=== PATIENT | male | born 1975 | race Caucasian/White ===

== ENCOUNTER 2017-07-28 10:45 | Observation (INO) | payer OTHER ==
--- NOTE | 2017-07-28 11:16 | ER Document Report ---
ED Medical Screen (RME) - General Chief Complaint: Chest Pain Stated Complaint: CHEST PAIN Time Seen by Provider: 07/28/17 11:05 Mode of Arrival: Ambulatory Information source: Patient - HPI Patient complains to provider of: CHEST PAIN Onset: Other - 1 MONTH Onset/Duration: Constant, Persistent Context: NEW ONSET THIS A.M. OF PAIN RADIATING TO L. NECK AND FACE. Quality of pain: Pressure Severity: Moderate Associated Symptoms: Nausea. denies: Shortness of breath Exacerbated by: Denies Relieved by: Other - LLD POSITION Similar symptoms previously: No Recently seen / treated by doctor: Yes - 3d AGO, CARDIOLEOGY W/U @ [facility], [place]. - Related Data Allergies/Adverse Reactions: No Known Allergies Allergy (Verified 07/28/17 11:12) Past Medical History - General Information source: Patient - Social History Cigarette use (# per day): Yes Frequency of alcohol use: Occasional Drug Abuse: None Lives with: Family - Past Medical History Cardiac Medical History: Reports: Hx Hypercholesterolemia, Hx Hypertension, Other - TACHYCARDIA Denies: Hx Congestive Heart Failure, Hx Coronary Artery Disease, Hx DVT, Hx Heart Attack, Hx Pulmonary Embolism Pulmonary Medical History: Reports: None EENT Medical History: Reports: None Neurological Medical History: Reports: None Renal/ Medical History: Reports: None Malignancy Medical History: Reports None GI Medical History: Reports: None Musculoskeltal Medical History: Reports None Surgical Hx: Negative Review of Systems - Review of Systems Constitutional: Weakness EENT: No symptoms reported Cardiovascular: Chest pain Respiratory: No symptoms reported Gastrointestinal: See HPI Genitourinary: No symptoms reported Musculoskeletal: No symptoms reported Skin: No symptoms reported Neurological/Psychological: No symptoms reported Physical Exam - Vital signs Vitals: Temp Pulse Resp BP Pulse Ox 99.2 F 116 H 16 148/91 H 96 07/28/17 10:54 07/28/17 10:54 07/28/17 10:54 07/28/17 10:54 07/28/17 10:54 Interpretation: Hypertensive, Tachycardic - General General appearance: Appears well, Alert In distress: None - Respiratory Respiratory status: No respiratory distress Breath sounds: Normal - Cardiovascular Rhythm: Regular, Tachycardia Heart sounds: Normal auscultation Murmur: No - Extremities General upper extremity: Normal inspection General lower extremity: Normal inspection. No: Edema - Skin Skin Temperature: Warm Skin Moisture: Dry Skin Color: Normal Skin Turgor: Elastic Course - Vital Signs Vital signs: Temp Pulse Resp BP Pulse Ox 99.2 F 116 H 16 148/91 H 96 07/28/17 10:54 07/28/17 10:54 07/28/17 10:54 07/28/17 10:54 07/28/17 10:54 - EKG Interpretation by Mo EKG shows normal: Sinus rhythm, [place], Intervals, QRS Complexes, ST-T Waves Rate: Tachycardia
[2017-07-28 11:52] LABS: ABSOLUTE BASOPHILS # (AUTO) 0.1 10^3/uL (0.0-0.2); ABSOLUTE EOSINOPHILS # (AUTO) 0.2 10^3/uL (0.0-0.6); ABSOLUTE LYMPHOCYTES (AUTO) 2.1 10^3/uL (0.5-4.7); ABSOLUTE MONOCYTES (AUTO) 0.8 10^3/uL (0.1-1.4); ABSOLUTE NEUT (AUTO) 6.4 10^3/uL (1.7-8.2); BASOPHILS % (AUTO) 0.6 % (0-2); EOSINOPHILS % (AUTO) 1.8 % (0-6); HEMATOCRIT 43.6 % (37.9-51.0); HEMOGLOBIN 14.9 g/dL (13.5-17.0); LYMPHOCYTES % (AUTO) 21.6 % (13-45); MEAN CORPUSCULAR HEMOGLOBIN 29.1 pg (27.0-33.4); MEAN CORPUSCULAR HGB CONC 34.2 g/dL (32.0-36.0); MEAN CORPUSCULAR VOLUME 85 fl (80-97); MONOCYTES % (AUTO) 8.5 % (3-13); PLATELET COUNT 236 10^3/uL (150-450); RED BLOOD COUNT 5.12 10^6/uL (4.35-5.55); RED CELL DISTRIBUTION WIDTH 13.3 % (11.5-14.0); SEGMENTED NEUTROPHILS % (AUTO) 67.5 % (42-78); TOTAL CELLS COUNTED % (AUTO) 100 %; WHITE BLOOD COUNT 9.5 10^3/uL (4.0-10.5)
[2017-07-28 12:13] LABS: ALANINE AMINOTRANSFERASE 68 U/L (21-72); ALBUMIN 4.5 g/dL (3.5-5.0); ALKALINE PHOSPHATASE 86 U/L (38-126); ANION GAP 7 (5-19); ASPARTATE AMINO TRANSFERASE 34 U/L (17-59); BILIRUBIN,DIRECT 0.4 mg/dL (0.0-0.4); BILIRUBIN,TOTAL 0.9 mg/dL (0.2-1.3); BLOOD UREA NITROGEN 17 mg/dL (7-20); CALCIUM 10.6 mg/dL (8.4-10.2); CARBON DIOXIDE 29 mmol/L (22-30); CHLORIDE 105 mmol/L (98-107); CREATINE KINASE 180 U/L (55-170); GLUCOSE 105 mg/dL (75-110); SODIUM 140.8 mmol/L (137-145); TOTAL PROTEIN 7.2 g/dL (6.3-8.2)
[2017-07-28 12:25] LABS: CREATINE KINASE MB 0.29 ng/mL (<4.55)
[2017-07-28 12:26] LABS: TROPONIN I < 0.012 ng/mL
[2017-07-28 12:30] LABS: ERYTHROCYTE SEDIMENTATION RATE 28 mm/hr (0-15)
--- NOTE | 2017-07-28 12:41 | RADIOLOGY REPORT (SQ) ---
EXAM DESCRIPTION: CHEST PA/LAT COMPLETED DATE/TIME: 07/28/2017 12:14 pm REASON FOR STUDY: CHEST PAIN COMPARISON: None. EXAM PARAMETERS: NUMBER OF VIEWS: two views TECHNIQUE: Digital Frontal and Lateral radiographic views of the chest acquired. RADIATION DOSE: NA LIMITATIONS: EKG leads over the chest FINDINGS: LUNGS AND PLEURA: No opacities, masses or pneumothorax. No pleural effusion. MEDIASTINUM AND HILAR STRUCTURES: No masses or contour abnormalities. HEART AND VASCULAR STRUCTURES: Heart normal size. No evidence for failure. BONES: No acute findings. HARDWARE: None in the chest. OTHER: No other significant finding. IMPRESSION: NO SIGNIFICANT RADIOGRAPHIC FINDING IN THE CHEST. TECHNICAL DOCUMENTATION: JOB ID: [id number] [employer]- All Rights Reserved
--- NOTE | 2017-07-28 12:56 | RADIOLOGY REPORT (SQ) ---
EXAM DESCRIPTION: CT HEAD WITHOUT COMPLETED DATE/TIME: 07/28/2017 12:46 pm REASON FOR STUDY: faical numbness COMPARISON: None. TECHNIQUE: Axial images acquired through the brain without intravenous contrast. Images reviewed wi th bone, brain and subdural windows. Images stored on PACS. All CT scanners at this facility use dose modulation, iterative reconstruction, and/or weight based d osing when appropriate to reduce radiation dose to as low as reasonably achievable (ALARA). [facility]: Dose Right [facility]: CareDose [facility]: Dose Right [facility]: Teradose 4D [facility]: Smart [employer] RADIATION DOSE: CT Rad equipment meets quality standard of care and radiation dose reduction techniq ues were employed. CTDIvol: 64.6 mGy. DLP: 1163 mGy-cm. mGy. LIMITATIONS: None. FINDINGS: VENTRICLES: Normal size and contour. CEREBRUM: No masses. No hemorrhage. No midline shift. No evidence for acute infarction. Normal gra y/white matter differentiation. No areas of low density in the white matter. CEREBELLUM: No masses. No hemorrhage. No alteration of density. No evidence for acute infarction. EXTRAAXIAL SPACES: No fluid collections. No masses. ORBITS AND GLOBE: No intra- or extraconal masses. Normal contour of globe without masses. CALVARIUM: No fracture. PARANASAL SINUSES: No fluid or mucosal thickening. SOFT TISSUES: No mass or hematoma. OTHER: No other significant finding. IMPRESSION: NORMAL BRAIN CT WITHOUT CONTRAST. EVIDENCE OF ACUTE STROKE: NO. COMMENT: Quality ID # [id number]: Final reports with documentation of one or more dose reduction techniques (e.g., Automated exposure control, adjustment of the mA and/or kV according to patient size, use of iterative reconstruction technique) TECHNICAL DOCUMENTATION: JOB ID: [id number]- All Rights Reserved
[2017-07-28] MEDS ORDERED: HYDROCODONE/ACETAMINOPHEN 5-325 MG TABLET PO ONE (13:11)
[2017-07-28] MEDS ORDERED: IBUPROFEN 800 MG TABLET PO ONE (13:16)
--- NOTE | 2017-07-28 14:22 | ER Document Report ---
ED General - General Chief Complaint: Chest Pain Stated Complaint: CHEST PAIN Time Seen by Provider: 07/28/17 11:05 Mode of Arrival: Ambulatory Information source: Patient Notes: 42-year-old male who has been seen at 6 different hospitals in the past approximate month and was recently at [facility] with chest pain presents today with chest pain as well. Patient notes it is midsternal radiating to neck, while in the emergency department patient had left facial numbness, he denies any specific weakness in his extremities. Denies any previous history of CVAs or TIAs Patient notes his blood pressure intermittently shoots up and becomes tachycardic when ambulating Patient had recent stress test which was normal and echocardiogram which was normal - HPI Onset: Other Onset/Duration: Sudden Quality of pain: Achy Severity: Mild Pain Level: 1 Associated symptoms: Chest pain, Headache, Shortness of breath Exacerbated by: Movement Relieved by: Denies Similar symptoms previously: Yes Recently seen / treated by doctor: Yes - Related Data Allergies/Adverse Reactions: No Known Allergies Allergy (Verified 07/28/17 11:12) Past Medical History - General Information source: Patient - Social History Smoking Status: Current Every Day Smoker Cigarette use (# per day): Yes Chew tobacco use (# tins/day): No Smoking Education Provided: No Frequency of alcohol use: Occasional Drug Abuse: None Lives with: Family Family History: Reviewed & Not Pertinent Patient has suicidal ideation: No Patient has homicidal ideation: No - Past Medical History Cardiac Medical History: Reports: Hx Hypercholesterolemia, Hx Hypertension, Other - TACHYCARDIA Denies: Hx Congestive Heart Failure, Hx Coronary Artery Disease, Hx DVT, Hx Heart Attack, Hx Pulmonary Embolism Pulmonary Medical History: Reports: None EENT Medical History: Reports: None Neurological Medical History: Reports: None Renal/ Medical History: Reports: None. Denies: Hx Peritoneal Dialysis Malignancy Medical History: Reports None GI Medical History: Reports: None, Hx Gastroesophageal Reflux Disease Musculoskeltal Medical History: Reports None Surgical Hx: Negative Review of Systems - Review of Systems Notes: REVIEW OF SYSTEMS: CONSTITUTIONAL : Denies fever, chills, or sweats. Denies recent illness. EENT: Denies eye, ear, throat, or mouth pain or symptoms. Denies nasal or sinus congestion or discharge. Denies throat, tongue, or mouth swelling or difficulty swallowing. CARDIOVASCULAR: Admits to chest pain heart racing RESPIRATORY: Denies cough, cold, or chest congestion. Denies shortness of breath, difficulty breathing, or wheezing. GASTROINTESTINAL: Denies abdominal pain or distention. Denies nausea, vomiting , or diarrhea. Denies blood in vomitus, stools, or per rectum. Denies black, tarry stools. Denies constipation. GENITOURINARY: Denies difficulty urinating, painful urination, burning, frequency, blood in urine, or discharge. MUSCULOSKELETAL: Denies back or neck pain or stiffness. Denies joint pain or swelling. SKIN: Denies rash, lesions or sores. HEMATOLOGIC : Denies easy bruising or bleeding. LYMPHATIC: Denies swollen, enlarged glands. NEUROLOGICAL: Denies confusion or altered mental status. Denies passing out or loss of consciousness. Denies dizziness or lightheadedness. Denies headache. Denies weakness or paralysis or loss of use of either side. Denies problems with gait or speech. Denies sensory loss, numbness, or tingling. Denies seizures. PSYCHIATRIC: Denies anxiety or stress. Denies depression, suicidal ideation, or homicidal ideation. ALL OTHER SYSTEMS REVIEWED AND NEGATIVE. Dictation was performed using [employer] voice recognition software PHYSICAL EXAMINATION: GENERAL: Well-appearing, well-nourished and in no acute distress. HEAD: Atraumatic, normocephalic. EYES: Pupils equal round and reactive to light, extraocular movements intact, sclera anicteric, conjunctiva are normal. ENT: Nares patent, oropharynx clear without exudates. Moist mucous membranes. NECK: Normal range of motion, supple without lymphadenopathy LUNGS: Breath sounds clear to auscultation bilaterally and equal. No wheezes rales or rhonchi. HEART: Regular rate and rhythm without murmurs ABDOMEN: Soft, nontender, nondistended abdomen. No guarding, no rebound. No masses appreciated. Musculoskeletal: Normal range of motion, no pitting or edema. No cyanosis. NEUROLOGICAL: Cranial nerves grossly intact. Normal speech, normal gait. Normal sensory, motor exams PSYCH: Normal mood, normal affect. SKIN: Warm, Dry, normal turgor, no rashes or lesions noted. Physical Exam - Vital signs Vitals: Temp Pulse Resp BP Pulse Ox 99.2 F 116 H 16 148/91 H 96 07/28/17 10:54 07/28/17 10:54 07/28/17 10:54 07/28/17 10:54 07/28/17 10:54 Course - Re-evaluation Re-evalutation: 07/28/17 16:51 Patient's lab work noted no significant abnormality CT of the head was negative , however given that he is having new onset numbness I do believe a evaluation for CVA versus TIA is appropriate. I am unsure if this is more anxiety related as the patient extensive recent admissions with completely benign results - Vital Signs Vital signs: Temp Pulse Resp BP Pulse Ox 99.2 F 116 H 21 H 118/64 98 07/28/17 10:54 07/28/17 10:54 07/28/17 16:01 07/28/17 16:01 07/28/17 16:01 - Laboratory Result Diagrams: 07/28/17 11:33 07/28/17 11:33 Laboratory results interpreted by me: 07/28/17 07/28/17 11:33 11:33 ESR 28 H Calcium 10.6 H Creatine Kinase 180 H - Diagnostic Test Radiology reviewed: Image reviewed, Reports reviewed - EKG Interpretation by Me EKG shows normal: Sinus rhythm, Collins, Intervals, QRS Complexes Discharge - Discharge Clinical Impression: Left facial numbness Chest pain Qualifiers: Chest pain type: unspecified Qualified Code(s): R07.9 - Chest pain, unspecified Condition: Stable Disposition: ADMITTED OBSERVATION Admitting Provider: Hospitalist Unit Admitted: Telemetry
[2017-07-28] MEDS ORDERED: HYDROCODONE/ACETAMINOPHEN 5-325 MG TABLET PO PRN (15:11)
[2017-07-28] MEDS ORDERED: ACETAMINOPHEN 325 MG TABLET PO PRN (15:17)
[2017-07-28] MEDS ORDERED: DOCUSATE SODIUM 100 MG CAPSULE PO PRN (15:17)
[2017-07-28] MEDS ORDERED: ONDANSETRON HCL INJ/PF 4 MG/2 ML SDV IV PRN (15:17)
--- NOTE | 2017-07-28 16:02 | EKG REPORT ---
SEVERITY:- ABNORMAL ECG - SINUS TACHYCARDIA NONSPECIFIC T ABNORMALITIES, LATERAL LEADS : Confirmed by: Luis Butler MD 28-Jul-2017 16:01:32
--- NOTE | 2017-07-28 16:05 | PDOC H&P ---
History of Present Illness Admission Date/PCP: 07/28/17 14:36 Patient complains of: Lt facial numbness, Chest pain History of Present Illness: ELIZABETH CHAVEZ is a 42 year old male with a past medical history of hypertension , hyperlipidemia, GERD who presents to the emergency department with a complaint of left facial numbness that began about 1045 this morning. He reports that the pain initially started in his left posterior neck and then extended to his left shoulder and left face. He reports that the pain has resolved and he is now feeling paresthesias to his left face only. He states that shortly after he felt left sternal border chest pain described as pressure. He states that the pain began while at rest and does not have any alleviating factors. He does report that he has had similar episodes of chest pain over the last 4 months. In fact, he the patient states that he recently had a inpatient echocardiogram and stress test at [facility]; the patient states that he was told that his stress test was normal. He has a follow-up with to cardiology on Saturday. However, this is the first episode of neck, shoulder, and facial pain or numbness. He states that the numbness is gradually resolving at this time. He denies associated confusion, extremity weakness, or dysphagia. Evaluation in the emergency department was unrevealing with an essentially normal workup. He is referred to the hospitalist service for observational admission of chest pain and TIA. Past Medical History Cardiac Medical History: Reports: Hyperlipidema, Hypertension, Other - TACHYCARDIA Denies: Congestive Heart Failure, Coronary Artery Disease, DVT, Myocardial Infarction, Pulmonary Embolism Pulmonary Medical History: Reports: None EENT Medical History: Reports: None Neurological Medical History: Reports: None Renal/ Medical History: Reports: None Malignancy Medical History: Reports: None GI Medical History: Reports: Gastroesophageal Reflux Disease Musculoskeltal Medical History: Reports: None Skin Medical History: Reports: None Psychiatric Medical History: Reports: None Traumatic Medical History: Reports: None Hematology: Reports: None Infectious Medical History: Reports: None Past Surgical History Past Surgical History: Reports: Orthopedic Surgery - Back Social History Information Source: Patient Lives with: Family Smoking Status: Former Smoker Cigarettes Packs Per Day: 1.5 Number of Years Smokin Frequency of Alcohol Use: None Hx Recreational Drug Use: No Hx Prescription Drug Abuse: No - Advance Directive Resuscitation Status: Full Code Family History Family History: CAD, DM, Hypertension, Other - Renal failure Parental Family History Reviewed: Yes Children Family History Reviewed: Yes Sibling(s) Family History Reviewed.: Yes Medication/Allergy Home Medications: Atorvastatin Calcium [Lipitor 40 mg Tablet] 40 mg PO QHS 07/28/17 Metoprolol Succinate 12.5 mg PO DAILY 07/28/17 Pantoprazole Sodium [Protonix] 40 mg PO DAILY 07/28/17 Allergies/Adverse Reactions: No Known Allergies Allergy (Verified 07/28/17 11:12) Review of Systems Constitutional: ABSENT: chills, fever(s), headache(s), weight gain, weight loss Eyes: ABSENT: visual disturbances Ears: ABSENT: hearing changes Cardiovascular: PRESENT: chest pain. ABSENT: dyspnea on exertion, edema, orthropnea, palpitations Respiratory: ABSENT: cough, hemoptysis Gastrointestinal: ABSENT: abdominal pain, constipation, diarrhea, hematemesis, hematochezia, nausea, vomiting Genitourinary: ABSENT: dysuria, hematuria Musculoskeletal: PRESENT: back pain - neck pain. ABSENT: joint swelling Integumentary: ABSENT: rash, wounds Neurological: PRESENT: paresthesias - lt face. ABSENT: abnormal gait, abnormal speech, confusion, dizziness, focal weakness, syncope Psychiatric: ABSENT: anxiety, depression, homidical ideation, suicidal ideation Endocrine: ABSENT: cold intolerance, heat intolerance, polydipsia, polyuria Hematologic/Lymphatic: ABSENT: easy bleeding, easy bruising Physical Exam Vital Signs: Temp Pulse Resp BP Pulse Ox 99.2 F 116 H 11 L 130/80 H 98 07/28/17 10:54 07/28/17 10:54 07/28/17 14:01 07/28/17 14:00 07/28/17 14:01 General appearance: PRESENT: no acute distress, obese, well-developed, well- nourished Head exam: PRESENT: atraumatic, normocephalic Eye exam: PRESENT: conjunctiva pink, EOMI, PERRLA. ABSENT: scleral icterus Ear exam: PRESENT: normal external ear exam Mouth exam: PRESENT: moist, tongue midline Neck exam: ABSENT: carotid bruit, JVD, lymphadenopathy, thyromegaly Respiratory exam: PRESENT: clear to auscultation pita, symmetrical, unlabored. ABSENT: rales, rhonchi, wheezes Cardiovascular exam: PRESENT: RRR, +S1, +S2. ABSENT: diastolic murmur, rubs, systolic murmur Pulses: PRESENT: normal dorsalis pedis pul Vascular exam: PRESENT: normal capillary refill GI/Abdominal exam: PRESENT: normal bowel sounds, soft. ABSENT: distended, guarding, mass, organolmegaly, rebound, tenderness Rectal exam: PRESENT: deferred Extremities exam: PRESENT: full ROM. ABSENT: calf tenderness, clubbing, pedal edema Neurological exam: PRESENT: alert, awake, oriented to person, oriented to place , oriented to time, oriented to situation, reflexes normal, CN II-XII grossly intact, normal gait. ABSENT: motor sensory deficit Psychiatric exam: PRESENT: appropriate affect, normal mood. ABSENT: homicidal ideation, suicidal ideation Skin exam: PRESENT: dry, intact, warm. ABSENT: cyanosis, rash Results Impressions: Chest X-Ray 07/28/17 11:16 IMPRESSION: NO SIGNIFICANT RADIOGRAPHIC FINDING IN THE CHEST. Head CT 07/28/17 12:30 IMPRESSION: NORMAL BRAIN CT WITHOUT CONTRAST. EVIDENCE OF ACUTE STROKE: NO. Assessment & Plan - Diagnosis (1) Left facial numbness Is this a current diagnosis for this admission?: Yes Plan: The patient presents with sudden onset left-sided facial numbness is now gradually receding. There is no facial droop and so unlikely to be a Muse's palsy. Some concern for TIA as the patient has risk factors of hyperlipidemia, hypertension, and obesity. However, ABCD2 score is 3 (low risk). The numbness was precipitated by neck and shoulder pain. We will obtain a cervical x-ray to assess for cervical radiculopathy. We will complete TIA workup with Carotid Dopplers, lipid panel, hemoglobin A1c, and MRI of the brain. Echocardiogram will be deferred as he has had one at [facility] within the previous week. The patient will continue daily aspirin and statin therapy. (2) Chest pain Qualifiers: Chest pain type: unspecified Qualified Code(s): R07.9 - Chest pain, unspecified Is this a current diagnosis for this admission?: Yes Plan: Patient presents with atypical chest pain. HEART score of 2. He reports that he has had an echocardiogram and cardiac stress test completed at [facility] within the previous week and was reported to be normal. He has a routine cardiology follow-up scheduled for Saturday. EKG streets a normal sinus rhythm. No ST segment depression or elevation is noted. Initial troponin is negative. We will trend troponins overnight. We will a assess lipid panel and hemoglobin A1c to further stratify risk. He will also obtain TSH as the patient reports that he has recently developed tachycardia and palpitations. (3) Hyperlipidemia Is this a current diagnosis for this admission?: Yes Plan: The patient is placed on high-dose atorvastatin. Will obtain lipid panel. (4) Hypertension Is this a current diagnosis for this admission?: Yes Plan: We will continue the patient's home medication metoprolol 12.5 mg daily. (5) GERD (gastroesophageal reflux disease) Is this a current diagnosis for this admission?: Yes Plan: We will continue the patient's home dose Protonix. - Time Time Spent: 50 to 70 Minutes Anticipated discharge: Home Within: within 24 hours
--- NOTE | 2017-07-28 17:16 | RADIOLOGY REPORT (SQ) ---
EXAM DESCRIPTION: MRI HEAD WITHOUT COMPLETED DATE/TIME: 07/28/2017 4:47 pm REASON FOR STUDY: TIA COMPARISON: CT dated 07/28/2017. TECHNIQUE: Multiplanar imaging includes non-contrasted T1, T2, FLAIR, and diffusion with ADC map seq uences. Images stored on PACS. LIMITATIONS: None. FINDINGS: ANATOMY: No anomalies. Normal vascular flow voids. Pituitary fossa normal. CSF SPACES: Normal in size and contour. No hemorrhage. CEREBRUM: Sulci and gyri normal in size and contour. Normal white matter signal on FLAIR imaging. No evidence of hemorrhage, mass, or extraaxial fluid collection. POSTERIOR FOSSA: No signal alteration. No hemorrhage. No edema, masses or mass effect. Internal diana tory canals, cerebello-pontine angles, mastoids normal. DIFFUSION IMAGING: Negative for acute or sub-acute infarction. ORBITS: No masses. Globes normal. PARANASAL SINUSES: No fluid levels. Mucosa normal. OTHER: No other significant finding. IMPRESSION: NORMAL MRI OF THE BRAIN WITHOUT INTRAVENOUS GADOLINIUM CONTRAST. EVIDENCE OF ACUTE STROKE: NO. TECHNICAL DOCUMENTATION: JOB ID: [id number]- All Rights Reserved
--- NOTE | 2017-07-28 17:17 | RADIOLOGY REPORT (SQ) ---
EXAM DESCRIPTION: CERV SP 3 VIEW OR LESS COMPLETED DATE/TIME: 07/28/2017 4:52 pm REASON FOR STUDY: Lt shoulder radiculopathy COMPARISON: None. NUMBER OF VIEWS: Three views. TECHNIQUE: AP, lateral and odontoid radiographic images acquired of the cervical spine. LIMITATIONS: None. FINDINGS: MINERALIZATION: Normal. ALIGNMENT: Anatomic. VERTEBRAE: Vertebral bodies of normal height. DISCS: Mild disc space narrowing with small osteophytes at C5-C6. HARDWARE: None in the spine. SOFT TISSUES: No masses or calcifications. Lung apices clear. OTHER: No other significant finding. IMPRESSION: MILD DEGENERATIVE CHANGES AT C5-C6. TECHNICAL DOCUMENTATION: JOB ID: [id number] [email or web address]- All Rights Reserved
[2017-07-28 18:03] LABS: CREATINE KINASE MB 0.23 ng/mL (<4.55)
[2017-07-28 18:04] LABS: TROPONIN I < 0.012 ng/mL
--- NOTE | 2017-07-28 18:25 | RADIOLOGY REPORT (SQ) ---
EXAM DESCRIPTION: CAROTID DOPPLER COMPLETED DATE/TIME: 07/28/2017 6:14 pm REASON FOR STUDY: TIA COMPARISON: CT brain 07/28/2017 MRI brain 07/28/2017 TECHNIQUE: Grayscale ultrasound, Doppler velocity and spectra, and color Doppler images acquired of the extra-cranial carotid and vertebral arteries. Images stored on PACS. LIMITATIONS: None. FINDINGS: RIGHT CAROTID CCA Velocities: Within normal limits. ICA Velocities Peak systolic 1.16 m/s. End diastolic 0.36 m/s. Proximal ICA/CCA peak systolic ratio 1.3. Spectra normal. No significant plaque. LEFT CAROTID CCA Velocities: Within normal limits. ICA Velocities Peak systolic 0.77 m/s. End diastolic 0.36 m/s. Proximal ICA/CCA peak systolic ratio 0.8. Spectra normal. No significant plaque. VERTEBRAL ARTERIES: Antegrade flow. Normal waveforms. SUBCLAVIAN ARTERIES: Not examined OTHER: No other significant finding. IMPRESSION: NO HEMODYNAMICALLY SIGNIFICANT STENOSIS. COMMENT: Quality ID #[id number]: Velocity criteria are extrapolated from the diameter data as defined by t he Society of Radiologists in Ultrasound Consensus Conference. Radiology 2003: 229; 340-346. TECHNICAL DOCUMENTATION: JOB ID: [id number] [email or web address]- All Rights Reserved
[2017-07-28] MEDS ORDERED: ATORVASTATIN CALCIUM 80 MG TABLET PO SCH (22:00)
[2017-07-28 23:58] LABS: CREATINE KINASE MB 0.27 ng/mL (<4.55)
[2017-07-28 23:59] LABS: TROPONIN I < 0.012 ng/mL
[2017-07-29 07:02] LABS: HEMATOCRIT 44.6 % (37.9-51.0); HEMOGLOBIN 14.7 g/dL (13.5-17.0); MEAN CORPUSCULAR HEMOGLOBIN 28.1 pg (27.0-33.4); MEAN CORPUSCULAR HGB CONC 32.8 g/dL (32.0-36.0); MEAN CORPUSCULAR VOLUME 86 fl (80-97); PLATELET COUNT 239 10^3/uL (150-450); RED BLOOD COUNT 5.21 10^6/uL (4.35-5.55); RED CELL DISTRIBUTION WIDTH 13.3 % (11.5-14.0); WHITE BLOOD COUNT 9.7 10^3/uL (4.0-10.5)
[2017-07-29 07:32] LABS: CREATINE KINASE MB 0.23 ng/mL (<4.55)
[2017-07-29 07:35] LABS: TROPONIN I < 0.012 ng/mL
[2017-07-29 07:38] LABS: ANION GAP 9 (5-19); BLOOD UREA NITROGEN 14 mg/dL (7-20); CALCIUM 10.2 mg/dL (8.4-10.2); CARBON DIOXIDE 24 mmol/L (22-30); CHLORIDE 106 mmol/L (98-107); CHOLESTEROL 196.54 mg/dL (0-200); GLUCOSE 119 mg/dL (75-110); POTASSIUM 5.1 mmol/L (3.6-5.0); SODIUM 139.3 mmol/L (137-145); TRIGLYCERIDES 95 mg/dL (<150)
[2017-07-29 07:48] LABS: DIRECT LDL 137 mg/dL (<100)
[2017-07-29 07:54] LABS: FREE T4 (FREE THYROXINE) 1.42 ng/dL (0.78-2.19)
[2017-07-29 08:08] LABS: THYROID STIMULATING HORMONE 0.78 uIU/mL (0.47-4.68)
[2017-07-29] MEDS ORDERED: LANSOPRAZOLE 30 MG TAB.RAP.DR ONE (09:52)
[2017-07-29] MEDS ORDERED: LANSOPRAZOLE 30 MG TAB.RAP.DR PO SCH (10:00)
[2017-07-29] MEDS ORDERED: METOPROLOL SUCCINATE 25 MG TAB.SR.24H PO SCH (10:00)
[2017-07-29] MEDS ORDERED: ENOXAPARIN SODIUM INJ 40 MG/0.4 ML DISP.SYRIN SUBCUT SCH (10:00)
[2017-07-29] MEDS ORDERED: ASPIRIN 325 MG TABLET, ENT COATED PO SCH (10:00)
[2017-07-29 10:02] VITALS: BP 126/76
--- NOTE | 2017-07-29 15:41 | PDOC DISCHARGE SUMMARY ---
General - Admit/Disc Date/PCP Admission Date/Primary Care Provider: 07/28/17 14:36 Discharge Date: 07/29/17 - Discharge Diagnosis (1) Left facial numbness Is this a current diagnosis for this admission?: Yes (2) Chest pain Is this a current diagnosis for this admission?: Yes (3) Hyperlipidemia Is this a current diagnosis for this admission?: Yes (4) Hypertension Is this a current diagnosis for this admission?: Yes (5) GERD (gastroesophageal reflux disease) Is this a current diagnosis for this admission?: Yes - Additional Information Resuscitation Status: Full Code Discharge Diet: Cardiac Discharge Activity: Activity As Tolerated, Balance Activity w/Rest Home Medications: Atorvastatin Calcium [Lipitor 20 mg Tablet] 20 mg PO QHS 07/29/17 Hydrocodone/Acetaminophen [Hydrocodone-Acetamin 5-325 mg] 1 tab PO Q8HP PRN 11/08 Metoprolol Succinate [Toprol Xl 25 mg Tab.sr] 12.5 mg PO DAILY 07/29/17 Pantoprazole Sodium [Protonix] 40 mg PO DAILY 07/29/17 History of Present Illness History of Present Illness: ELIZABETH CHAVEZ is a 42 year old male with a past medical history of hypertension , hyperlipidemia, GERD who presents to the emergency department with a complaint of left facial numbness that began about 1045 this morning. He reports that the pain initially started in his left posterior neck and then extended to his left shoulder and left face. He reports that the pain has resolved and he is now feeling paresthesias to his left face only. He states that shortly after he felt left sternal border chest pain described as pressure. He states that the pain began while at rest and does not have any alleviating factors. He does report that he has had similar episodes of chest pain over the last 4 months. In fact, he the patient states that he recently had a inpatient echocardiogram and stress test at [facility]; the patient states that he was told that his stress test was normal. He has a follow-up with to cardiology on Saturday. However, this is the first episode of neck, shoulder, and facial pain or numbness. He states that the numbness is gradually resolving at this time. He denies associated confusion, extremity weakness, or dysphagia. Evaluation in the emergency department was unrevealing with an essentially normal workup. He is referred to the hospitalist service for observational admission of chest pain and TIA. Hospital Course Hospital Course: The patient was admitted for observational status of chest pain and left facial numbness. The patient did have an echocardiogram and cardiac stress test completed at [facility] last week that the patient states was normal. He does have a follow-up appointment was to cardiology scheduled for this upcoming Saturday. Serial troponins were negative and cardiac telemetry demonstrated a normal sinus rhythm without evidence of ST segment elevation or depression. Lipid panel was acceptable, A1c was 6%. TSH/free T4 were within normal ranges. The patient did not experience any additional chest pain overnight. Shortly after developing chest pain, the patient felt left shoulder pain radiating to his face followed by persistent left facial numbness that resolved slowly over the following 2-3 hours. No focal deficits were noted. A carotid Doppler was obtained and did not show hemodynamically significant stenosis. A head CT and follow-up brain MRI imaging were both negative for acute stroke. The patient is stable, symptom-free, and discharged to home with self-care and instructions to keep his cardiology follow-up as scheduled this week. The patient is also to follow-up with his primary care provider within 1-2 weeks. To continue on daily aspirin and statin therapy. Physical Exam Vital Signs: Temp Pulse Resp BP Pulse Ox 98.2 F 91 16 126/76 H 95 07/29/17 10:00 07/29/17 10:00 07/29/17 10:00 07/29/17 10:00 07/29/17 10:00 Intake & Output 07/28/17 07/29/17 07/30/17 06:59 06:59 06:59 Intake Total 110 Output Total 550 Balance -440 Weight 107 kg General appearance: PRESENT: no acute distress, obese, well-developed, well- nourished Head exam: PRESENT: atraumatic, normocephalic Eye exam: PRESENT: conjunctiva pink, EOMI, PERRLA. ABSENT: scleral icterus Ear exam: PRESENT: normal external ear exam Mouth exam: PRESENT: moist, tongue midline Neck exam: ABSENT: carotid bruit, JVD, lymphadenopathy, thyromegaly Respiratory exam: PRESENT: clear to auscultation pita. ABSENT: rales, rhonchi, wheezes Cardiovascular exam: PRESENT: RRR. ABSENT: diastolic murmur, rubs, systolic murmur Pulses: PRESENT: normal dorsalis pedis pul Vascular exam: PRESENT: normal capillary refill GI/Abdominal exam: PRESENT: normal bowel sounds, soft. ABSENT: distended, guarding, mass, organolmegaly, rebound, tenderness Rectal exam: PRESENT: deferred Extremities exam: PRESENT: full ROM. ABSENT: calf tenderness, clubbing, pedal edema Neurological exam: PRESENT: alert, awake, oriented to person, oriented to place , oriented to time, oriented to situation, CN II-XII grossly intact. ABSENT: motor sensory deficit Psychiatric exam: PRESENT: appropriate affect, normal mood. ABSENT: homicidal ideation, suicidal ideation Skin exam: PRESENT: dry, intact, warm. ABSENT: cyanosis, rash Results Laboratory Results: 07/29/17 06:30 07/29/17 06:30 07/29/17 07/29/17 07/29/17 06:30 06:30 06:30 WBC 9.7 RBC 5.21 Hgb 14.7 Hct 44.6 MCV 86 MCH 28.1 MCHC 32.8 RDW 13.3 Plt Count 239 Sodium 139.3 Potassium 5.1 H Chloride 106 Carbon Dioxide 24 Anion Gap 9 BUN 14 Creatinine 0.95 Est GFR ( Amer) > 60 Est GFR (Non-Af Amer) > 60 Glucose 119 H Calcium 10.2 Triglycerides 95 Cholesterol 196.54 LDL Cholesterol Direct 137 H VLDL Cholesterol 19.0 HDL Cholesterol 45 TSH 0.78 Free T4 1.42 07/28/17 07/28/17 07/28/17 17:15 17:15 23:10 Creatine Kinase 158 172 H CK-MB (CK-2) 0.23 Troponin I < 0.012 07/28/17 07/29/17 07/29/17 23:10 06:30 06:30 Creatine Kinase 139 CK-MB (CK-2) 0.27 0.23 Troponin I < 0.012 < 0.012 Impressions: Cervical Spine X-Ray 07/28/17 00:00 IMPRESSION: MILD DEGENERATIVE CHANGES AT C5-C6. Chest X-Ray 07/28/17 11:16 IMPRESSION: NO SIGNIFICANT RADIOGRAPHIC FINDING IN THE CHEST. Head CT 07/28/17 12:30 IMPRESSION: NORMAL BRAIN CT WITHOUT CONTRAST. EVIDENCE OF ACUTE STROKE: NO. Carotid Doppler Study 07/28/17 15:16 IMPRESSION: NO HEMODYNAMICALLY SIGNIFICANT STENOSIS. Head MRI 07/28/17 15:16 IMPRESSION: NORMAL MRI OF THE BRAIN WITHOUT INTRAVENOUS GADOLINIUM CONTRAST. EVIDENCE OF ACUTE STROKE: NO. Qualifiers PATEINT BEING DISCHARGED WITH ANY OF THE FOLLOWING DIAGNOSIS?: No
== END 2017-07-29 10:16 | disposition home or self-care (01) ==
LOC: ER 10:45 → EH 14:36 → 3N 22:31
PROVIDERS: ADMIT Student in an Organized Health Care Education/Training Program; ATTEND Student in an Organized Health Care Education/Training Program
DX: R20.0 Anesthesia of skin (principal); R07.89 Other chest pain; E78.5 Hyperlipidemia, unspecified; I10 Essential (primary) hypertension; K21.9 Gastro-esophageal reflux disease without esophagitis; R20.2 Paresthesia of skin; M54.9 Dorsalgia, unspecified; M54.2 Cervicalgia; M25.512 Pain in left shoulder; R51 Headache; R06.02 Shortness of breath; R11.0 Nausea; R53.1 Weakness; R00.0 Tachycardia, unspecified; Z79.899 Other long term (current) drug therapy; Z98.890 Other specified postprocedural states; Z82.49 Family history of ischemic heart disease and other diseases of the circulatory system; Z87.891 Personal history of nicotine dependence
CPT/HCPCS: 93005; 99285; 36415 ×2; 84439; 82553 ×2; 82550 ×2; 84443; 85025; 85027; 85652; 80048; 80053; 84484 ×2; 83036; 80061; 93880; 70551; 72040; 71046; 70450; 93010; G0378 ×3; J3490